=== PATIENT | male | born 1960 ===

== ENCOUNTER 2016-06-23 09:48 | Day surgery (SDC) | payer MEDICAID ==
[2016-06-23] MEDS ORDERED: Lactated Ringer's 500 ML IV ONE (10:58)
[2016-06-23 11:50] VITALS: O2SAT 99
[2016-06-23] MEDS ORDERED: Propofol 10 mg/ml Inj (20 ML) ONE (12:09)
[2016-06-23 13:56] VITALS: TEMP 97
[2016-06-23 14:10] VITALS: BP 122/72; PULSE 76; RESP 13
== END 2016-06-23 14:19 | disposition home or self-care (01) ==
LOC: H.ENDO 09:48
PROVIDERS: ATTEND Internal Medicine Gastroenterology
DX: K26.9 Duodenal ulcer, unspecified as acute or chronic, without hemorrhage or perforation (principal)